=== PATIENT | female | born 1965 | race Caucasian/White ===

== ENCOUNTER 2016-12-02 18:32 | Emergency (ER) | payer BC ==
[~2016-12-02] VITALS: Ht 162.6 cm; Wt 52.6 kg
[~2016-12-02 18:32] MED LIST: BCPILLS PO
[2016-12-02 18:44] VITALS: TEMP 36.9; Ht 162.6 cm; Wt 52.6 kg
[2016-12-02 19:32] LABS: BASO % 0.2 %; BASO ABS # 0.02 K/uL (0-0.2); COMPLETE YES; HEMATOCRIT 38.3 % (37-47); IG% 0.2 %; LYMPH % 24.4 %; LYMPH ABS # 2.05 K/uL (1.2-3.4); MEAN CELL VOLUME 91.2 fL (80-100); MEAN CORPUSCULAR HEMOGLOBIN 31.4 pg (25-34); MEAN CORPUSCULAR HGB CONC 34.5 g/dl (32-36); MEAN PLATELET VOLUME 10.2 fL (7.4-10.4); MONO % 4.5 %; NEUT % 69.7 %; PLATELET COUNT 258 K/uL (130-400); WHITE BLOOD COUNT 8.39 K/uL (4.8-10.8)
--- NOTE | 2016-12-02 19:46 | DIAGNOSTIC IMAGING REPORT ---
CHEST ONE VIEW PORTABLE CLINICAL HISTORY: Acute change in mental status COMPARISON STUDY: No previous studies for comparison. FINDINGS: The cardiac and mediastinal contours are normal. There is no evidence of focal pulmonary consolidation. There is no evidence of failure. No pleural effusions are visualized.[ IMPRESSION: No active disease in the chest. Electronically signed by: Erik Bustamante M.D. 12/02/2016 7:44 PM Dictated Date/Time: 12/02/2016 7:43 PM
--- NOTE | 2016-12-02 19:47 | DIAGNOSTIC IMAGING REPORT ---
CT HEAD WITHOUT CONTRAST (CT) CLINICAL HISTORY: Acute change in mental status COMPARISON STUDY: No previous studies for comparison. TECHNIQUE: Axial CT of the brain is performed from the vertex to the skull base. IV contrast was not administered for this examination. CT DOSE: 537.48 mGy.cm FINDINGS: No intra or extra-axial mass lesions are visualized. There is no CT evidence of acute cortical infarction. There is no evidence of midline shift. There is no acute hemorrhage. No calvarial fractures are visualized. There is no evidence of pathologic ventricular dilatation. There is no evidence of acute sinusitis IMPRESSION: No acute intracranial findings Electronically signed by: Erik Bustamante M.D. 12/02/2016 7:45 PM Dictated Date/Time: 12/02/2016 7:44 PM
[2016-12-02 19:48] LABS: INR 0.9 (0.9-1.1); PARTIAL THROMBOPLASTIN RATIO 0.9; PROTHROMBIN TIME (PATIENT) 9.4 SECONDS (9.0-12.0)
[2016-12-02 19:49] LABS: ALT/SGPT 25 U/L (12-78); AST/SGOT 13 U/L (15-37); BLOOD UREA NITROGEN 10 mg/dl (7-18); CALCIUM 8.6 mg/dl (8.5-10.1); CARBON DIOXIDE 28 mmol/L (21-32); CHLORIDE 106 mmol/L (98-107); GLUCOSE 131 mg/dl (70-99); POTASSIUM 3.2 mmol/L (3.5-5.1); SODIUM 142 mmol/L (136-145)
[2016-12-02 19:53] LABS: ALKALINE PHOSPHATASE 52 U/L (45-117)
[2016-12-02 19:59] LABS: URINE BILIRUBIN NEG (NEG); URINE COLOR YELLOW; URINE NITRITE NEG (NEG); URINE PH 6.5 (4.5-7.5); URINE SPECIFIC GRAVITY 1.007 (1.000-1.030); UROBILINOGEN NEG (NEG); ZZURINE CULT IF INDIC CATH NO
[2016-12-02 20:00] LABS: MANUAL MICROSCOPIC REQUIRED? NO; REVIEW REQ? NO
[2016-12-02 20:19] LABS: BENZODIAZEPINE, URINE NEG (NEG); COCAINE,URINE NEG (NEG); PHENCYCLIDINE, URINE NEG (NEG)
[2016-12-02 20:57] VITALS: BP 163/89; PULSE 72; O2SAT 98
--- NOTE | 2016-12-03 02:21 | EMERGENCY ROOM VISIT NOTE ---
History Report prepared by [place]: Dexter Ram Under the Supervision of: Dr. Toney Dukes D.O. First contact with patient: 19:03 Chief Complaint: CONFUSION Stated Complaint: FORGETFUL, CONFUSED- FAMILY HX STROKES Nursing Triage Summary: Pt reports tonight "I just felt confused. We were doing things and I didn't remember.". per they were cleaning under the bed, cleaned it twice, pt thought she worked today when she didn't. Pt denies any pain. Pt reports family hx of Stroke. pt is on Sertraline, had a RUm and Coke this afternoon. "i don't know if it's a reaction or what". History of Present Illness The patient is a 51 year old female who presents to the Emergency Room with complaints of constant confusion starting around 1630. The patient states that she has been having trouble remembering things today. She states that she had a rum and coke around 1530 with more than one or two shots, and she does not drink very frequently. Per the patient's , the patient was cleaning, and they cleaned together, and then a half hour later she did not remember the cleaning they did earlier. The asked her if she was okay, and she stated yes, however she kept forgetting the cleaning they were doing. Additionally, the states that she thought she had work today even though she did not. The patient denies any medical problems other than anxiety which she takes medication for. She states that a family history of stroke and heart disease. The patient denies any smoking and history of heart disease. She states that she had heaviness in her chest last night, and took TUMS and then fell asleep. Pt denies weakness in arms or legs headache, change in vision, fevers, chest pain, shortness of breath, nausea, vomiting, diarrhea, pain with urination, and melena. Source of History: patient, spouse/significant other Onset: 1630 Position: other (global) Quality: other (confusion) Timing: constant Associated Symptoms: No weakness Note: Associated symptoms: Forgetfulness Review of Systems See HPI for pertinent positives & negatives. A total of 10 systems reviewed and were otherwise negative. Past Medical & Surgical Medical Problems: (1) (2) UTI (urinary tract infection) Surgical Problems: (1) History of breast augmentation (2) History of fistula surgery (3) History of tubal ligation Family History FHx: diabetes FHx: heart disease FHx: hyperlipidemia FHx: hypertension FHx: kidney disease/stones Social History Smoking Status: Never Smoker Alcohol Use: none Marital Status: Occupation Status: employed Current/Historical Medications Scheduled Control Pills ( Control Pills), 1 TAB PO DAILY Allergies Coded Allergies: No Known Allergies (Unverified , 12/15/13) Physical Exam Vital Signs Date Time Temp Pulse Resp B/P Pulse Ox O2 Delivery O2 Flow Rate FiO2 12/02/16 20:57 72 18 163/89 98 12/02/16 19:56 76 18 141/89 98 Room Air 12/02/16 19:23 83 12/02/16 18:44 36.9 82 18 156/86 98 Room Air Physical Exam GENERAL: Sitting up in bed, smell of alcohol, no acute distress, non-toxic EYE EXAM: normal conjunctiva, PERRL and EOM's intact OROPHARYNX: no exudate, no erythema, lips, buccal mucosa, and tongue normal and mucous membranes are moist NECK: supple, no nuchal rigidity, no adenopathy, non-tender LUNGS: Clear to auscultation. Normal chest wall mechanics HEART: no murmurs, S1 normal and S2 normal ABDOMEN: abdomen soft, non-tender, normo-active bowel sounds, no masses, no rebound or guarding. BACK: Back is symmetrical on inspection and there is no deformity, no midline tenderness, no CVA tenderness. SKIN: no rashes and no bruising UPPER EXTREMITIES: upper extremities are grossly normal. LOWER EXTREMITIES: No pitting edema. NEURO EXAM: Alert and oriented to person place and time.cranial nerves II-XII intact, intermittently slurring speech, no gross weakness of arms, no gross weakness of legs. No drift. Finger to nose intact. Gross sensation intact. Rapid alternating movements of the upper extremities is intact Medical Decision & Procedures ER Provider Diagnostic Interpretation: Radiology results as stated below per my review and the radiologist's interpretation: CT HEAD WITHOUT CONTRAST (CT) CLINICAL HISTORY: Acute change in mental status COMPARISON STUDY: No previous studies for comparison. TECHNIQUE: Axial CT of the brain is performed from the vertex to the skull base. IV contrast was not administered for this examination. CT DOSE: 537.48 mGy.cm FINDINGS: No intra or extra-axial mass lesions are visualized. There is no CT evidence of acute cortical infarction. There is no evidence of midline shift. There is no acute hemorrhage. No calvarial fractures are visualized. There is no evidence of pathologic ventricular dilatation. There is no evidence of acute sinusitis IMPRESSION: No acute intracranial findings Electronically signed by: Erik Bustamante M.D. 12/02/2016 7:45 PM Dictated Date/Time: 12/02/2016 7:44 PM CHEST ONE VIEW PORTABLE CLINICAL HISTORY: Acute change in mental status COMPARISON STUDY: No previous studies for comparison. FINDINGS: The cardiac and mediastinal contours are normal. There is no evidence of focal pulmonary consolidation. There is no evidence of failure. No pleural effusions are visualized.[ IMPRESSION: No active disease in the chest. Electronically signed by: Erik Bustamante M.D. 12/02/2016 7:44 PM Dictated Date/Time: 12/02/2016 7:43 PM Laboratory Results 12/02/16 19:15 Red Blood Count 4.20, Mean Corpuscular Volume 91.2, Mean Corpuscular Hemoglobin 31.4, Mean Corpuscular Hemoglobin Concent 34.5, Mean Platelet Volume 10.2, Neutrophils (%) (Auto) 69.7, Lymphocytes (%) (Auto) 24.4, Monocytes (%) (Auto) 4.5, Eosinophils (%) (Auto) 1.0, Basophils (%) (Auto) 0.2, Neutrophils # (Auto) 5.84, Lymphocytes # (Auto) 2.05, Monocytes # (Auto) 0.38, Eosinophils # (Auto) 0.08, Basophils # (Auto) 0.02 12/02/16 19:15 Test 12/02/16 19:15 12/02/16 19:34 White Blood Count 8.39 K/uL (4.8-10.8) Red Blood Count 4.20 M/uL (4.2-5.4) Hemoglobin 13.2 g/dL (12.0-16.0) Hematocrit 38.3 % (37-47) Mean Corpuscular Volume 91.2 fL (80-100) Mean Corpuscular Hemoglobin 31.4 pg (25-34) Mean Corpuscular Hemoglobin Concent 34.5 g/dl (32-36) Platelet Count 258 K/uL (130-400) Mean Platelet Volume 10.2 fL (7.4-10.4) Neutrophils (%) (Auto) 69.7 % Lymphocytes (%) (Auto) 24.4 % Monocytes (%) (Auto) 4.5 % Eosinophils (%) (Auto) 1.0 % Basophils (%) (Auto) 0.2 % Neutrophils # (Auto) 5.84 K/uL (1.4-6.5) Lymphocytes # (Auto) 2.05 K/uL (1.2-3.4) Monocytes # (Auto) 0.38 K/uL (0.11-0.59) Eosinophils # (Auto) 0.08 K/uL (0-0.5) Basophils # (Auto) 0.02 K/uL (0-0.2) RDW Standard Deviation 45.6 fL (36.4-46.3) RDW Coefficient of Variation 13.8 % (11.5-14.5) Immature Granulocyte % (Auto) 0.2 % Immature Granulocyte # (Auto) 0.02 K/uL (0.00-0.02) Prothrombin Time 9.4 SECONDS (9.0-12.0) Prothromb Time International Ratio 0.9 (0.9-1.1) Activated Partial Thromboplast Time 23.7 SECONDS (21.0-31.0) Partial Thromboplastin Ratio 0.9 Anion Gap 8.0 mmol/L (3-11) Est Creatinine Clear Calc Drug Dose 56.5 ml/min Estimated GFR () 76.6 Estimated GFR (Non- 66.1 BUN/Creatinine Ratio 10.0 (10-20) Calcium Level 8.6 mg/dl (8.5-10.1) Total Bilirubin 0.3 mg/dl (0.2-1) Direct Bilirubin 0.1 mg/dl (0-0.2) Aspartate Amino Transf (AST/SGOT) 13 U/L (15-37) Alanine Aminotransferase (ALT/SGPT) 25 U/L (12-78) Alkaline Phosphatase 52 U/L (45-117) Troponin I < 0.015 ng/ml (0-0.045) Total Protein 7.7 gm/dl (6.4-8.2) Albumin 3.7 gm/dl (3.4-5.0) Ethyl Alcohol mg/dL 211.0 mg/dl (0-3) Urine Color YELLOW Urine Appearance ERROR (CLEAR) Urine pH 6.5 (4.5-7.5) Urine Specific [place] 1.007 (1.000-1.030) Urine Protein NEG (NEG) Urine Glucose (UA) NEG (NEG) Urine Ketones NEG (NEG) Urine Occult Blood NEG (NEG) Urine Nitrite NEG (NEG) Urine Bilirubin NEG (NEG) Urine Urobilinogen NEG (NEG) Urine Leukocyte Esterase NEG (NEG) Urine WBC (Auto) 1-5 /hpf (0-5) Urine RBC (Auto) 0-4 /hpf (0-4) Urine Hyaline Casts (Auto) 0 /lpf (0-5) Urine Epithelial Cells (Auto) 10-20 /lpf (0-5) Urine Bacteria (Auto) NEG (NEG) Urine Opiates Screen NEG (NEG) Urine Methadone, Qualitative NEG (NEG) Urine Barbiturates NEG (NEG) Urine Phencyclidine (PCP) Level NEG (NEG) Ur Amphetamine/Methamphetamine NEG (NEG) MDMA (Ecstasy) Screen NEG (NEG) Urine Benzodiazepines Screen NEG (NEG) Urine Cocaine Metabolite NEG (NEG) Urine Marijuana (THC) NEG (NEG) Laboratory results per my review. ECG Indication: other (confusion) Rate (beats per minute): 75 Rhythm: sinus rhythm Findings: no ectopy, other (Normal axis) ED Course ED COURSE: Vital signs were reviewed and showed normal vitals The patients medical record was reviewed The above diagnostic studies were performed and reviewed. ED treatments and interventions as stated above. 1902: The patient was evaluated in room B10. A complete history and physical examination was performed. 2011: I reevaluated the patient, and she was resting comfortably 2037: Upon reevaluation, the patient is resting.I discussed my findings with the patient and she understands and agrees with the treatment plan. Based on the patients age, coexisting illnesses, exam and lab findings the decision to treat as an inpatient was made. The patient remained stable while under my care. The patient appeared well at the time of discharge. Medical Decision Differential diagnoses includes but is not limited to toxic, metabolic, infectious, traumatic, cardiac, neurologic, hematologic, psychiatric and inflammatory etiologies. Patient is a 51-year-old female who presents the ER for confusion. Patient was at home with the and forgot that she cleaned the bedroom and has been very forgetful today. Her mentation has been improving. He notes no focal deficits. She admits to drinking 1 glass of alcohol. She notes that she drank this around 3:30. Labs were obtained along with a negative CT head. CBC was unremarkable. BMP was remarkable for a mild hypokalemia which is likely secondary to her alcohol abuse. Bilirubin along with LFTs and troponin was normal. EKG was unremarkable. Alcohol was 211 at 7 PM. With calculations her alcohol was likely closer to 270-280 when she had these episodes of forgetfulness. As she is nonfocal I favor this is the likely cause. UA was negative. Patient was updated along with at bedside and discharged.Discussed with Pt concerning signs and symptoms to watch out for. Pt was instructed to follow up with their PCP and discussed with the patient their option to return to the ED at anytime for persistent or worsening symptoms. The appropriate anticipatory guidance and out-patient management, including indications for return to the emergency department, were explained at length to the patient and understood. Impression Primary Impression: Alcohol abuse Additional Impressions: Confusion Hypokalemia Scribe Attestation The scribe's documentation has been prepared under my direction and personally reviewed by me in its entirety. I confirm that the note above accurately reflects all work, treatment, procedures, and medical decision making performed by me. Departure Information Dispostion Home / Self-Care Referrals Marquez Fritz M.D. (PCP) Forms HOME CARE DOCUMENTATION FORM, IMPORTANT VISIT INFORMATION, WORK / SCHOOL INSTRUCTIONS Patient Instructions Alcohol Abuse - [facility], [facility] Additional Instructions Please follow up with your primary care doctor with in the next 24 hours. Any worsening of your symptoms, please return to the ED immediately. This includes any additional confusion, weakness or numbness in arms or legs, passing out, chest pain, shortness of breath or any other concerning signs or symptoms from your standpoint. Problem Qualifiers
== END 2016-12-02 20:58 | disposition home or self-care (01) ==
LOC: C.EDB 18:33
DX: F10.129 Alcohol abuse with intoxication, unspecified (principal); Y90.8 Blood alcohol level of 240 mg/100 ml or more; E87.6 Hypokalemia; R41.0 Disorientation, unspecified; Z87.440 Personal history of urinary (tract) infections; Z98.51 Tubal ligation status; Z98.890 Other specified postprocedural states; Z83.3 Family history of diabetes mellitus; Z82.49 Family history of ischemic heart disease and other diseases of the circulatory system; Z84.1 Family history of disorders of kidney and ureter

== ENCOUNTER → 2017-06-28 | Outpatient (CLI) | payer BC ==
--- NOTE | 2017-06-29 15:37 | MAMMOGRAPHY REPORT ---
BILATERAL DIGITAL SCREENING MAMMOGRAM WITH CAD: 06/28/2017 CLINICAL HISTORY: Patient presents for routine screening. S/P bilateral augmentation. TECHNIQUE: Current study was also evaluated with a Computer Aided Detection (CAD) system. Bilateral CC and MLO views including implant displaced views were obtained. COMPARISON: Comparison is made to exams dated: 10/06/2015 mammogram, 06/10/2014 mammogram, 06/24/2013 mammogram, 06/24/2013 ultrasound, 06/09/2013 mammogram, and 06/05/2012 mammogram - [facility]. BREAST COMPOSITION: The tissue of both breasts is heterogeneously dense, which may obscure small mas ses. FINDINGS: No suspicious masses, calcifications, or areas of architectural distortion are noted in ei ther breast. There are new subpectoral silicone implants bilaterally. IMPRESSION: ACR BI-RADS CATEGORY 2: BENIGN There is no mammographic evidence of malignancy. A 1 year screening mammogram is recommended. The pa tient will receive written notification of the results. Approximately 10% of breast cancers are not detected with mammography. A negative mammographic report should not delay biopsy if a clinically suggestive mass is present. Rasheeda Yang M.D. /:06/28/2017 16:15:56 Feed Blender: Janice MENEZES(Karina)(Edmund), [facility] letter sent: Normal 1/2 BI-RADS Code: ACR BI-RADS Category 2: Benign
== END | disposition home or self-care (01) ==
LOC: C.MAMM 07:21
PROVIDERS: ATTEND Physician Assistant
DX: Z12.31 Encounter for screening mammogram for malignant neoplasm of breast (principal); Z98.82 Breast implant status

== ENCOUNTER 2017-12-30 19:09 | Emergency (ER) | payer BC, OTHER ==
[~2017-12-30] VITALS: Ht 162.6 cm; Wt 55.0 kg
[2017-12-30 19:16] VITALS: TEMP 37.1; Ht 162.6 cm; Wt 55.0 kg
[2017-12-30] MEDS ORDERED: OXYCODONE HCL IR 5 MG TAB (IMMEDIATE RELEASE) PO STA (19:26)
--- NOTE | 2017-12-30 19:36 | EMERGENCY ROOM VISIT NOTE ---
ED Visit Note First contact with patient: 19:20 CHIEF COMPLAINT: Right ankle pain HISTORY OF PRESENT ILLNESS: This 52 year old female patient presents to the emergency department, on crutches, after sustaining an injury to the right ankle and foot after a fall from a ladder. The patient states she was painting her deck approximately 1 hr [employer]. She states the latter tipped over, and she fell approximately 6 feet. She states she landed on her hands and is uncertain exactly how she injured the ankle. The patient complains of pain along the outside of the ankle. The patient does report some pain of the lateral right foot. The patient rates the pain as sharp and 10/10. The patient is not able to bear weight on the foot. Constant pain, worse with movement, weight bearing , and the dependent position. No knee pain, the patient is able to move their toes. No numbness or weakness of the foot, no laceration. The patient has not had a previous fracture to this ankle, but did have a previous fracture. The patient has taken 2 Tylenol for the pain without relief. The patient denies any other injury. She denies any head injury. She denies any back pain, upper extremity pain, knee pain, numbness or tingling, neck pain, or other concerning symptoms. REVIEW OF SYSTEMS: A 6 system review of systems was completed with positives and pertinent negatives listed in the HPI. ALLERGIES: None MEDICATIONS: OCPs PMH: None SOCIAL HISTORY: The patient lives locally with family. She denies drug, alcohol , tobacco use. PHYSICAL EXAM: Vital Signs: Reviewed Nurse's notes, vital signs stable. GENERAL : This is a 52-year-old white female, no acute distress, but appears in pain, well-developed, well-nourished. MENTAL STATUS: Alert, oriented to person place and time, and cooperative. MUSCULOSKELETAL: The right ankle is swollen and tender over the lateral malleolus, but the skin is intact and there is no ligamentous instability. There is fifth metatarsal tenderness. There is no tenderness over the rest of the foot. There is no calf or tibia/fibular tenderness. There is no visual deformity. The foot and toes are warm and well- perfused. Dorsalis pedis pulse 2+. Sensation to pain and light touch is intact. Capillary refill less than 2 seconds. RADIOLOGY: RIGHT FOOT 3 VIEWS, RIGHT ANKLE 3 VIEWS HISTORY: Right foot pain. right ankle pain/swelling, fall COMPARISON: None. FINDINGS: No fracture or dislocation within the right ankle. Soft tissue swelling within the right ankle. Comminuted nondisplaced fracture throughout the calcaneus. Soft tissue swelling at the hindfoot. No radiopaque foreign bodies. IMPRESSION: 1. Comminuted nondisplaced fracture within the calcaneus. 2. No fracture or dislocation within the right ankle. Electronically signed by: Oscar Henley M.D. 12/30/2017 8:22 PM Dictated Date/Time: 12/30/2017 8:[address] DOSE: 160.50 mGy.cm HISTORY: right calcaneous fracture TECHNIQUE: Multiaxial CT images of the right hindfoot were performed and reformatted in the sagittal and coronal plane without the use of contrast. A dose lowering technique was utilized adhering to the principles of ALARA. COMPARISON: Right foot 12/30/2017. FINDINGS: There is a severely comminuted fracture involving the majority of the calcaneus. This demonstrates up to 3 mm of central depression. No dislocation. The remaining bones of the hindfoot appear to be intact. Soft tissue swelling at the heel. The Achilles tendon appears intact. No fracture dislocation within the ankle. The central fracture fragments also demonstrated up to 7 mm of distraction. Small lipohemarthrosis within the subtalar joint. IMPRESSION: Severely comminuted fracture involving the majority of the calcaneus. The fractures demonstrate up to 3 mm of central depression and 7 mm of distraction. Electronically signed by: Oscar Henley M.D. 12/30/2017 9:43 PM Dictated Date/Time: 12/30/2017 9:39 PM EMERGENCY DEPARTMENT COURSE: I examined the patient. She was given one dose of OxyIR. X-rays of the Right ankle and foot were reviewed by myself and read by radiology and reveal a Comminuted nondisplaced fracture within the calcaneus. I consulted with orthopedics, Dr. Abarca, who recommended obtaining a CT scan to further evaluate the calcaneus. He recommended a stirrup and posterior leg splint with a significant amount of padding, nonweightbearing status, and close follow-up early this week. CT scan was performed and reviewed by myself and radiologist as above. An orthoglass posterior leg with stirrup splint was applied to the ankle under my direction and the position was satisfactory. Neurovascular status was rechecked and intact. The patient was instructed on the use of crutches. PDMP consulted with no suspicious findings noted. She was given a home pack for OxyIR with prescription sent to the pharmacy. The patient was discharged home in good condition. I attest that I have personally reviewed the patient's current medication list. Blood Pressure Screening: Patient was found to have a slightly elevated blood pressure due to circumstances. I do not believe that the patient requires hypertension monitoring. Etiologies such as soft tissue injury, fracture, dislocation, neurovascular compromise, compartment syndrome, as well as others were entertained. DIAGNOSIS: Left Calcaneous fracture The chart was completed utilizing [employer] Speech voice recognition software. Grammatical errors, random word insertions, pronoun errors, and incomplete sentences are an occasional consequence of this system due to software limitations, ambient noise, and hardware issues. Any formal questions or concerns about the content, text, or information contained within the body of this dictation should be directly addressed to the provider for clarification. Problem List Medical Problems: (1) Status: Chronic (2) UTI (urinary tract infection) Status: Chronic Surgical Problems: (1) History of fistula surgery Status: Resolved (2) History of tubal ligation Status: Resolved Current/Historical Medications Scheduled Control Pills ( Control Pills), 1 TAB PO DAILY Scheduled PRN Oxycodone Ir (Roxicodone Ir), 1-2 TAB PO Q4H PRN for Pain Allergies Coded Allergies: No Known Allergies (Unverified , 12/15/13) Vital Signs Date Time Temp Pulse Resp B/P (MAP) Pulse Ox O2 Delivery O2 Flow Rate FiO2 12/30/17 19:16 37.1 73 18 149/89 98 Room Air Medications Administered Medications (Trade) Dose Ordered Sig/Vivian Route Start Time Stop Time Status Last Admin Dose Admin Oxycodone HCl (Roxicodone Immediate Rel Tab) 5 mg NOW STAT PO 12/30/17 19:26 12/30/17 19:27 DC 12/30/17 19:32 5 MG Departure Information Impression Primary Impression: Right calcaneal fracture Dispostion Home / Self-Care Condition GOOD Prescriptions Oxycodone Ir (Roxicodone Ir) 5 Mg Tab 1-2 TAB PO Q4H Y for Pain, #15 TAB For Initial Treatment Prov: Silva Jackson PA-C 12/30/17 Referrals No Doctor, Assigned (PCP) [facility] Patient Instructions ED Compartment Syndrome At Risk For, ED Fx Foot, ED Splint Care [facility], [facility] Additional Instructions You were seen in the ED today for a right calcaneus fracture. As discussed, these fractures do have a high rate of complications. You should monitor closely for numbness, tingling, severe swelling, redness, discoloration, or other concerning symptoms. You should not bear any weight on the extremity. You should follow-up closely with orthopedics. DO NOT drive, drink alcohol, operate machinery, or perform dangerous activities today. You were given medications in the ER that can affect your ability to safely function or operate a vehicle. Oxycodone (OxyIR) 5mg: Take 1-2 pills every four hours as needed for breakthrough pain. Avoid alcohol, operating machinery or dangerous equipment, working on ladders or roofs, DRIVING, or situations where being under the influence may be dangerous. It is recommended to use an [id number]-[id number] stool softener such as Colace, 100mg twice daily while taking this medication to avoid constipation. Ibuprofen(Motrin, Advil) may be used for fever or pain. Use 600mg every six hours as needed. Take with food. Avoid using more than 2400mg in a 24 hour period. Do not use 2400mg per day for more than three consecutive days without physician direction. Prolonged inappropriate use can lead to stomach upset or ulcers. (AND/OR) Acetaminophen(Tylenol) may be used for fever or pain. Use 1000mg every six hours as needed. Avoid using more than 3000mg in a 24 hour period. Ice compresses for 20 minutes at a time four times daily for 2-3 days. Use the crutches as instructed. Avoid ALL weightbearing until directed otherwise by orthopedics. Rest and elevate your injury. Do not get the splint wet. If your splint feels excessively tight, you have worsening pain, develop numbness or tingling, or your digits appear blue, loosen the ellen wrap. Then reapply the ellen wrap gently without removing the splint. If your symptoms are not quickly relieved return to the ER for re- evaluation. Return to the ER immediately for any numbness, tingling, severe pain, extreme swelling in the extremity or as needed. Call [facility], [phone], tomorrow morning to arrange follow up for your injury. Follow-up with your primary care physician in 2 to 3 days for a recheck of your current condition. Problem Qualifiers Primary Impression: Right calcaneal fracture Encounter type: initial encounter Calcaneus location: unspecified portion of calcaneus Fracture type: closed Fracture alignment: nondisplaced Qualified Codes: S92.001A - Unspecified fracture of right calcaneus, initial encounter for closed fracture
--- NOTE | 2017-12-30 20:23 | DIAGNOSTIC IMAGING REPORT ---
RIGHT FOOT 3 VIEWS, RIGHT ANKLE 3 VIEWS HISTORY: Right foot pain. right ankle pain/swelling, fall COMPARISON: None. FINDINGS: No fracture or dislocation within the right ankle. Soft tissue swelling within the right ankle. Comminuted nondisplaced fracture throughout the calcaneus. Soft tissue swelling at the hindfoot. No radiopaque foreign bodies. IMPRESSION: 1. Comminuted nondisplaced fracture within the calcaneus. 2. No fracture or dislocation within the right ankle. Electronically signed by: Oscar Henley M.D. 12/30/2017 8:22 PM Dictated Date/Time: 12/30/2017 8:20 PM
[2017-12-30] MEDS ORDERED: OXYCODONE IR HOME PACK PO STA (20:54)
[2017-12-30] MEDS ORDERED: OXYC1TAB3 PO (21:21)
--- NOTE | 2017-12-30 21:45 | DIAGNOSTIC IMAGING REPORT ---
RIGHT HINDFOOT CT CT DOSE: 160.50 mGy.cm HISTORY: right calcaneous fracture TECHNIQUE: Multiaxial CT images of the right hindfoot were performed and reformatted in the sagittal and coronal plane without the use of contrast. A dose lowering technique was utilized adhering to the principles of ALARA. COMPARISON: Right foot 12/30/2017. FINDINGS: There is a severely comminuted fracture involving the majority of the calcaneus. This demonstrates up to 3 mm of central depression. No dislocation. The remaining bones of the hindfoot appear to be intact. Soft tissue swelling at the heel. The Achilles tendon appears intact. No fracture dislocation within the ankle. The central fracture fragments also demonstrated up to 7 mm of distraction. Small lipohemarthrosis within the subtalar joint. IMPRESSION: Severely comminuted fracture involving the majority of the calcaneus. The fractures demonstrate up to 3 mm of central depression and 7 mm of distraction. Electronically signed by: Oscar Henley M.D. 12/30/2017 9:43 PM Dictated Date/Time: 12/30/2017 9:39 PM
[2017-12-30 22:16] VITALS: BP 148/88; PULSE 74; O2SAT 98
== END 2017-12-30 22:18 | disposition home or self-care (01) ==
LOC: C.EDB 19:10 → C.EDD 22:18
DX: S92.001A Unspecified fracture of right calcaneus, initial encounter for closed fracture (principal); W11.XXXA Fall on and from ladder, initial encounter; Z87.440 Personal history of urinary (tract) infections; Z98.51 Tubal ligation status; Z98.890 Other specified postprocedural states